=== PATIENT | female | born 1980 | race Caucasian/White ===

== ENCOUNTER 2019-04-24 12:31 | Outpatient (RCR) | payer BC | END 2019-07-23 | disposition home or self-care (01) | LOC: CARD 12:31 | PROVIDERS: ATTEND Internal Medicine | DX: I49.1 Atrial premature depolarization (principal); R00.2 Palpitations | CPT/HCPCS: 93225; 93226 ==

== ENCOUNTER → 2019-05-18 | Outpatient (CLI) | payer BC ==
[~2019-05-18] VITALS: Ht 66 cm; Wt 86.0 kg
[2019-05-18] MEDS: CATHETER FLUSH 10 ML SYR IV PRN ×2 (07:35→07:40)
[2019-05-18 08:18] VITALS: BP 137/88
[2019-05-18 08:21] VITALS: BP 173/87
[2019-05-18 08:27] VITALS: BP 150/94
--- NOTE | 2019-05-18 18:02 | STRESS TEST ---
DATE OF SERVICE: 05/18/2019 RESTING AND POSTEXERCISE TECHNETIUM-99M TETROFOSMIN SPECT CT IMAGING CLINICAL DIAGNOSIS: Palpitations. ORDERING PHYSICIAN: Kilo Thornton DO. PRIMARY PHYSICIAN: Kilo Thornton DO. Baseline images were carried out after injection of 10.45 mCi of technetium-99m Tetrofosmin. Subsequently, exercise was carried out under Dr. Thornton's supervision and the electrocardiographic portion of the study is to be reported separately by Dr. Thornton. The patient received 31.6 mCi of technetium-99m Tetrofosmin at peak exercise. This was after the patient had achieved 85% of maximum predicted heart rate and the exercise was continued for another minute. Review of images at rest and following stress does not indicate any significant perfusion defects consistent with significant myocardial ischemia or infarction. Some degree of breast attenuation artifact is seen both at rest and following exercise. Gated images show normal global left ventricular systolic function with normal regional wall motion. Left ventricular ejection fraction is calculated to be 52%. CONCLUSIONS: 1. No evidence of significant myocardial ischemia or infarction on this study. 2. Normal regional wall motion. 3. Normal global left ventricular systolic function with a calculated ejection fraction of 52%. Job ID: [id number] DocumentID: [id number] Dictated Date: 05/18/2019 16:45:57 Test Grader Date: 05/18/2019 18:01:22 Dictated By: NO LEBLANC MD, MA, FACP, FACC,
== END ==
LOC: CARD 06:48
PROVIDERS: ATTEND Internal Medicine
DX: R00.2 Palpitations (principal)
CPT/HCPCS: 78452; 93017

== ENCOUNTER → 2022-01-08 | Outpatient (CLI) | payer BC, MEDICAID ==
[2022-01-08 08:04] VITALS: BP 138/81
== END ==
LOC: CARD 08:00
PROVIDERS: ATTEND Internal Medicine
DX: R00.2 Palpitations (principal); R53.83 Other fatigue
CPT/HCPCS: 93017